=== PATIENT | male | born 1940 | race African-American/Black ===

== ENCOUNTER 2022-02-19 11:03 | Emergency (ER) | payer MEDICARE, MEDICAID ==
[~2022-02-19] VITALS: Ht 167.6 cm; Wt 68.0 kg
[~2022-02-19 11:03] MED LIST: B50; BUSP10TA3; CRES10; ESOM40CA; FERR325T30; LORA-249; PHEN100C12; TRAM50TA; ZOLP10TA6
[2022-02-19 11:37] VITALS: BP 137/71
== END 2022-02-19 18:34 | disposition left against medical advice (07) ==
LOC: ER 11:03
DX: Z53.21 Procedure and treatment not carried out due to patient leaving prior to being seen by health care provider (principal)